=== PATIENT | male | born 1965 | race Caucasian/White ===

== ENCOUNTER 2021-12-02 14:33 | Emergency (ER) | payer OTHER ==
[2021-12-02 15:33] LABS: HEMOGLOBIN 17.4 gm/dl (14.0-17.5); RED BLOOD COUNT 5.48 M/UL (4.20-5.50); WHITE BLOOD COUNT 7.4 K/UL (4.5-11.0)
== END 2021-12-02 20:45 | disposition home or self-care (01) ==
LOC: ER1 14:33
PROVIDERS: Physician Assistant Medical
DX: M25.511 Pain in right shoulder (principal); R20.2 Paresthesia of skin; I95.9 Hypotension, unspecified; E78.5 Hyperlipidemia, unspecified
CPT/HCPCS: 71045; 72125; 80053; 82550; 82553; 83874; 84484; 85025; 93005; 99284